=== PATIENT | female | born 1985 | race Caucasian/White ===

== ENCOUNTER 2018-07-18 11:12 | Emergency (ER) | payer OTHER ==
[2018-07-18 11:39] VITALS: BP 109/56
[2018-07-18] MEDS ORDERED: Ketorolac INJ* 30 MG/ML 1 ML VIAL IM ONE (11:54)
[2018-07-18] MEDS ORDERED: Ondansetron ODT TAB* 4 MG PO ONE (12:00)
--- NOTE | 2018-07-18 12:05 | UC ---
Shoulder Pain HPI - HPI Summary HPI Summary: 33-year-old female presents with 3 day history of right shoulder pain. States she has had some issues with shoulder pain for the past year following receiving a spider bite which required her to be hospitalized at [facility] 5 days. States the pain has progressively worsened over the last 3 days. Describes as sharp. Radiates up into the right side of her neck. States this morning she started developing some numbness and tingling in the right arm and fingers. No specific injury although she does report using the arm a lot performing repetitive motions at work the other day. Denies fever, chills, chest pain, shortness of breath, abdominal pain, nausea , or vomiting. - History of Current Complaint Chief Complaint: UCUpperExtremity Stated Complaint: RIGHT ARM CONCERN Time Seen by Provider: 07/18/18 11:21 Hx Obtained From: Patient Hx Last Menstrual Period: 06/19/18 Pain Intensity: 8 - Allergies/Home Medications Allergies/Adverse Reactions: Allergies Allergy/AdvReac Type Severity Reaction Status Date / Time Penicillins Allergy Shortness Verified 07/18/18 12:02 of Breath Home Medications: Home Medications Acetaminophen [Mapap] 6 tab PO PRN 07/18/18 [History] PMH/Surg Hx/FS Hx/Imm Hx Psychological History: Anxiety, Depression - Surgical History Surgical History: Yes Surgery Procedure, Year, and Place: , . TONSILLECTOMY - Family History Known Family History: Positive: Non-Contributory - Social History Occupation: Employed Full-time Lives: With Family Alcohol Use: None Substance Use Type: None Smoking Status (MU): Heavy Every Day Tobacco Smoker Type: Cigarettes Amount Used/How Often: 1 PPD Review of Systems All Other Systems Reviewed And Are Negative: Yes Constitutional: Negative: Fever, Chills Skin: Negative: Rash Respiratory: Negative: Shortness Of Breath, Cough Cardiovascular: Negative: Palpitations, Chest Pain Gastrointestinal: Negative: Vomiting, Nausea Genitourinary: Positive: Negative Musculoskeletal: Positive: Other: - See HPI Neurological: Positive: Paresthesia, Numbness Is Patient Immunocompromised?: No Physical Exam - Summary Physical Exam Summary: GENERAL APPEARANCE: Alert, obese, adult female who appears to be uncomfortable holding her right arm in a position of comfort. NECK: Neck supple, non-tender. CARDIAC: Normal S1 and S2. No S3, S4 or murmurs. Rhythm is regular. There is no peripheral edema, cyanosis or pallor. Extremities are warm and well perfused. Capillary refill is less than 2 seconds. Peripheral pulses intact. LUNGS: Clear to auscultation without rales, rhonchi, wheezing or diminished breath sounds. ABDOMEN: Positive bowel sounds. Soft, nondistended, nontender. No guarding or rebound. No masses or hepatosplenomegally. MUSKULOSKELETAL: Patient complaining of severe generalized pain to the right shoulder with light palpation. Full exam limited as patient will not allow for any ROM testing to be performed. BACK: Examination of the spine reveals normal gait and posture, no spinal deformity or tenderness, decreased range of motion or muscular spasm. NEUROLOGICAL: Strength and sensation symmetric and intact to upper extremities. SKIN: Skin normal color, texture and turgor with no lesions or eruptions. Triage Information Reviewed: Yes Vital Signs: Initial Vital Signs Temp 97.9 F 07/18/18 11:30 Pulse 74 07/18/18 11:30 Resp 18 07/18/18 11:30 BP 109/56 07/18/18 11:30 Pulse Ox 100 07/18/18 11:30 Vital Signs Reviewed: Yes Shoulder Course/Dx - Course Course Of Treatment: 33-year-old female presents with 3 day history of right shoulder pain. States she has had some issues with shoulder pain for the past year following receiving a spider bite which required her to be hospitalized at [facility] 5 days. States the pain has progressively worsened over the last 3 days. Describes as sharp. Radiates up into the right side of her neck. States this morning she started developing some numbness and tingling in the right arm and fingers. No specific injury although she does report using the arm a lot performing repetitive motions at work the other day. Denies fever, chills, chest pain, shortness of breath, abdominal pain, nausea , or vomiting. Afebrile. Vital signs stable. Exam of the shoulder was limited because patient complained of severe pain with light touch and would not allow for any range of motion to be performed. Preliminary reading of the X -ray of the shoulder by myself showed no acute pathology. A review of her chart shows she was seen at this facility on 12/04/2017 for similar symptoms involving her left shoulder. A CT of the cervical and thoracic spine were obtained at that time which showed some mild cervical spondylosis and multilevel mild thoracic degenerative spondylosis. Patient was given ketorolac 30 mg IM in the clinic for pain as well as a dose of ondansetron 4 mg by mouth as she states that the ketorolac has caused her to be nauseous in the past. I reviewed all these findings with the patient. She stated that she had some mild relief of the pain from the ketorolac. Will plan to treat her conservatively for acute shoulder pain with naproxen 500 mg twice a day for the next 5-7 days then as needed for pain. She was placed in an arm sling to provide some comfort for the next 2 days. I discussed with the patient the need to perform gentle range of motion exercises every 1-2 hours while awake while using the arm sling. These exercises were demonstrated for the patient. She is to follow-up with Dr. Merida in 5-7 days for further evaluation. Anticipatory guidance and warning symptoms were reviewed with the patient. Verbalizes understanding and agrees with plan of care. - Differential Dx/Diagnosis Differential Diagnosis/HQI/PQRI: Arthritis, Bursitis, Rotator Cuff Injury, Thoracic Outlet Syndrome Provider Diagnosis: Right shoulder pain Discharge - Sign-Out/Discharge Documenting (check all that apply): Patient Departure All imaging exams completed and their final reports reviewed: Yes - Discharge Plan Condition: Stable Disposition: HOME Prescriptions: Naproxen [Naproxen 500 mg tab] 500 mg PO Q12HR #30 tablet Patient Education Materials: Shoulder Pain (ED) Forms: *Work Release Referrals: Linda Larios NP [Primary Care Provider] - Enio Myrick MD [Medical Doctor] - 5 Days Additional Instructions: The x-ray of your right shoulder performed in the clinic today was normal. You were given an injection of anti-inflammatory pain medication called ketoralac (Toradol) in the clinic today at 12:00 pm. You should not take any other anti-inflammatory pain medications including ibuprofen (Advil, Motrin), naproxen (Aleve), or aspirin for at least 8 hours after receiving this medication. You have been given a prescription for naproxen 500 mg 1 tab with food every 12 hours for pain. You should start this tonight at 8:00 pm and take regularly for the next 5-7 days. You may then take every 12 hours as needed for pain. Use the arm sling that was provided for the next 2 days for support. You should remove your arm from the sling every 1-2 hours while awake and perform the range of motion exercises we discussed to avoid having the should freeze up. Do not use the sling for more than 2 days[address] Follow up with Dr. Myrick, orthopedic surgery, in 5-7 days for further evaluation and treatment. Seek immediate medical attention in the emergency room if you have severe pain that is not managed with pain medication, lose function of the arm, have chest pain, shortness of breath, or any worsening of symptoms. - Billing Disposition and Condition Condition: STABLE Disposition: Home
== END 2018-07-18 13:08 | disposition home or self-care (01) ==
LOC: MERGE 11:12 → UCCORT 11:12
DX: M25.511 Pain in right shoulder (principal); F41.9 Anxiety disorder, unspecified; F32.9 Major depressive disorder, single episode, unspecified; F17.210 Nicotine dependence, cigarettes, uncomplicated; Z88.0 Allergy status to penicillin
CPT/HCPCS: 96372; 99212; A9270-GY; G0463; J1885

== ENCOUNTER 2018-08-13 12:01 | Emergency (ER) | payer OTHER ==
--- OUTSIDE RECORDS SUMMARY | 2018-08-13 12:12 | XMS REPORT | Continuity of Care Document ---
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 Abel Larios NP Primary Care Physician Unavailable Payers Date Identification Numbers Payment Provider Subscriber Effective: 2007 Policy Number: [id number] [employer] Deborah Tsai PayID: [id number] [address] [place] [address] Expires: 2017 Policy Number: [id number] Medicaid Deborah Tsai Group Name: 1 1 [address] PayID: [id number] [place] [address] Advance Directives Description No Information Available Problems Active Problems Provider Date Deviated nasal septum Abel Larios FNP Onset: 04/30/2016 Note: Document: 04/17/16 - Consult ENT - Selma Foss Resolved Problems Sprain of knee and leg Oscar Hatfield MD Onset: 09/13/2011 Resolved: 07/07/2015 Sprain of cruciate ligament of knee Oscar Hatfield MD Onset: 09/27/2011 Resolved: 07/07/2015 Family History Date Family Member(s) Observation Comments Father Hepatitis C Father due to Throat Cancer () Mother Cervical Cancer Mother Depression Mother Anxiety Mother substance abuse Mother post traumatic stress disorder First Sister Thyroid Disease Grandfather Stroke Grandfather Anxiety Grandfather Hypertension Grandmother Cervical Cancer Grandmother Anxiety Paternal Grandfather Hypertension Paternal Grandfather due to NC () Paternal Grandmother Thyroid Disease Maternal Grandfather due to "unplugged himself" () Maternal Grandfather Stroke Maternal Grandfather Heart Attack Maternal Grandfather Hypertension Maternal Grandfather Kidney Disease was on dialysis Maternal Grandmother Stroke Maternal Grandmother Heart Attack Maternal Grandmother Heart Disease S/P 3 vessel CABG Social History Type Date Description Comments Sex Unknown Diet Patient follows no dietary restrictions Occupation [employer] Tobacco Use Start: Unknown Current Cigarette Smoker 1 Pack Daily Cigarette Use Pack Years - 14 ETOH Use Occasionally consumes alcohol Tobacco Use Start: Unknown Heavy tobacco smoker (more than 10 cigarettes/day) Smoking Status Reviewed: 07/22/18 Heavy tobacco smoker (more than 10 cigarettes/day) Allergies, Adverse Reactions, Alerts Active Allergies Reaction Severity Comments Date Penicillin 09/13/2011 Medications Active Medications SIG Qnty Indications Ordering Provider Date Prenata 1 by mouth every 90units Z33.1 Hortencia Shultz, 07/22/2018 29-1mg Chewtabs day Sertraline HCL take one tablet [facility] History Medications Flagyl one by mouth 14tabs [place], 11/26/2017 - 500[facility] twice a [facility] x [facility] 07/22/2018 Tablets days Quetiapine take 1 tablet by 60tabs G47.9 [place], 11/14/2017 - Fumarate mouth 1 [facility] 07/22/2018 25mg prior to sleep,if Tablets no improvement in 3 days,may try 2 tablets as needed up to 4 tablets at night Prednisone 2 by mouth every 10tabs M75.21 [place], 09/13/2017 - 20mg day x 5 days Abel [facility] 09/18/2017 Tablets Fluconazole one by mouth 1tabs B37.3 [place], 09/13/2017 - 150mg [facility] 11/14/2017 Tablets Norgestimate-Eth 1 by mouth every 28tabs Z30.09 [place], 09/13/2017 - Estradiol day for [address] [facility] 07/22/2018 then off 1 week 0.25-35mg-mcg Tablets Cefdinir 1 by mouth twice 20caps J01.90 Gemini Cruz, 04/15/2017 - 300mg a day PNP-BC, [employer], Ibclc 09/13/2017 Capsules Ondansetron HCL one every 8 hours 12tabs K29.00 [place], 02/21/2017 - as needed for Abel [facility] 07/22/2018 8mg Tablets nausea Naproxen take one tablet 60tabs M75.20 [place], 10/03/2016 - 500mg by mouth twice a Abel [facility] 09/13/2017 Tablets day Tylenol Extra 1-2 tabs by mouth 180tabs M54.12 [place], 09/28/2016 - Strength every 6 hours as Abel [facility] 07/22/2018 500mg needed Tablets Prednisone 1 tab PO bid x 5 10tabs M54.12 [facility] 09/28/2016 - 20mg days Abel [facility] 10/03/2016 Tablets No Active Unknown 09/28/2016 - Medications 09/28/2016 Flagyl one by mouth 14tabs A59.01 [place], 09/24/2016 - 500mg twice a day x 7 Abel [facility] 09/28/2016 Tablets days Flagyl one by mouth 14tabs [place], 09/17/2016 - 500mg twice a day x 7 [facility] 09/24/2016 Tablets days No Active Unknown 09/14/2016 - Medications 09/17/2016 Fluticasone 1 spray each 16units [place], 04/05/2016 - Propionate nostril twice a Abel [facility] 09/14/2016 day 50mcg/Act Suspension Azithromycin 2 by mouth on day 6tabs [place], 04/05/2016 - 1 then 1 by mouth Abel [facility] 04/11/2016 250mg Tablets every day on days 2-5 Zithromax take 2 tabs by 6tabs J01.00 [place], 02/08/2016 - 250mg mouth on day 1 Abel [employer] 02/14/2016 Tablets then 1 tab by mouth qddays 2-5 Sertraline HCL Take One Tablet 30tabs F41.9 [place], 02/08/2016 - By Mouth Every Abel [employer] 09/14/2016 100mg Tablets Day Sertraline HCL 50 mg by mouth 45tabs F41.9 [place], 07/07/2015 - every day MARLENE Roman 02/08/2016 50mg Tablets Venlafaxine HCL ER 1 by mouth every 30caps F41.9 Jenelle Grady, 10/13 - day M.D. 07/07/2015 150mg Caps ER 24HR Escitalopram 1 by mouth every 30tabs 300.02 Jenelle Grady, 2014 - Oxalate day M.D. 10/13/2014 20mg Tablets Ibuprofen Unknown - 800mg 10/13/2014 Tablets Tramadol HCL Unknown - 50mg 10/13/2014 Tablets Immunizations CPT Code Status Date Vaccine Lot # [id number] Given 12/05/2016 MMR Vaccine, Live, For Subcutaneous Use [id number] Given 10/03/2016 Tdap injection [id number] Vital Signs Date Vital Result Comment 07/22/2018 1:16pm BP Systolic 118 mmHg BP Diastolic 62 mmHg Body Temperature 97.3 F Heart Rate 95 /min Weight 236.00 lb O2 % BldC Oximetry 97 % 11/14/2017 10:39am BP Systolic Sitting Left Arm 118 mmHg BP Diastolic Sitting Left Arm 76 mmHg Heart Rate 80 /min Respiratory Rate 18 /min Height 65 inches 5'5" Weight 219.38 lb BMI (Body Mass Index) 36.5 kg/m2 BSA (Body Surface Area) 2.06 m2 [place] body weight in kilograms 57 kg Last Menstrual Period [id number] 09/13/2017 2:07pm BP Systolic Sitting Left Arm 128 mmHg BP Diastolic Sitting Left Arm 86 mmHg Body Temperature 98.8 F Heart Rate 80 /min Respiratory Rate 18 /min Height 65 inches 5'5" Weight 216.25 lb BMI (Body Mass Index) 36.0 kg/m2 BSA (Body Surface Area) 2.04 m2 [place] body weight in kilograms 57 kg Last Menstrual Period [id number] 04/15/2017 2:26pm BP Systolic Sitting Left Arm 110 mmHg BP Diastolic Sitting Left Arm 68 mmHg Body Temperature 98.2 F Heart Rate 60 /min Weight 217.00 lb O2 % BldC Oximetry 96 % 02/21/2017 11:20am BP Systolic Sitting Left Arm 118 mmHg BP Diastolic Sitting Left Arm 74 mmHg Body Temperature 98.7 F Heart Rate 82 /min Respiratory Rate 20 /min Height 65 inches 5'5" Weight 209.00 lb BMI (Body Mass Index) 34.8 kg/m2 BSA (Body Surface Area) 2.02 m2 [place] body weight in kilograms 57 kg Last Menstrual Period [id number] Pain Level 5 lower abdomin 10/03/2016 3:00pm BP Systolic 126 mmHg BP Diastolic 82 mmHg Height 65 inches 5'5" Weight 212.00 lb BMI (Body Mass Index) 35.3 kg/m2 BSA (Body Surface Area) 2.03 m2 [place] body weight in kilograms 57 kg 09/28/2016 1:01pm BP Systolic 125 mmHg BP Diastolic 68 mmHg Height 65 inches 5'5" Weight 213.00 lb BMI (Body Mass Index) 35.4 kg/m2 BSA (Body Surface Area) 2.03 m2 [place] body weight in kilograms 57 kg 09/14/2016 2:16pm BP Systolic Sitting Left Arm 112 mmHg BP Diastolic Sitting Left Arm 64 mmHg Heart Rate 82 /min Respiratory Rate 18 /min Height 65 inches 5'5" Weight 214.00 lb BMI (Body Mass Index) 35.6 kg/m2 BSA (Body Surface Area) 2.04 m2 [place] body weight in kilograms 57 kg Last Menstrual Period [id number] 02/08/2016 10:35am BP Systolic Sitting Left Arm 1128 mmHg BP Diastolic Sitting Left Arm 72 mmHg Body Temperature 97.8 F Height 65 inches 5'5" Weight 202.00 lb BMI (Body Mass Index) 33.6 kg/m2 BSA (Body Surface Area) 1.99 m2 [place] body weight in kilograms 57 kg Last Menstrual Period [id number] 07/07/2015 2:03pm BP Systolic Sitting Left Arm 118 mmHg BP Diastolic Sitting Left Arm 72 mmHg Height 65 inches 5'5" Weight 200.00 lb BMI (Body Mass Index) 33.3 kg/m2 BSA (Body Surface Area) 1.98 m2 Last Menstrual Period [id number] 10/13/2014 3:37pm BP Systolic Sitting Left Arm 108 mmHg BP Diastolic Sitting Left Arm 62 mmHg Heart Rate 74 /min Respiratory Rate 19 /min Height 65 inches 5'5" Weight 184.00 lb BMI (Body Mass Index) 30.6 kg/m2 BSA (Body Surface Area) 1.91 m2 Last Menstrual Period [id number] Only One Day 05/31/2014 4:16pm BP Systolic 138 mmHg BP Diastolic 72 mmHg Heart Rate 66 /min Respiratory Rate 19 /min Height 65 inches 5'5" Weight 208.00 lb 09/13/2011 8:52am BP Systolic Sitting Right Arm 116 mmHg BP Diastolic Sitting Right Arm 78 mmHg Height 65.5 inches 5'5.50" Weight 231.00 lb BMI (Body Mass Index) 37.9 kg/m2 09/11/2011 3:01pm BP Systolic 118 mmHg BP Diastolic 58 mmHg Heart Rate 72 /min Weight 225.00 lb 06/12/2011 11:25am BP Systolic 118 mmHg BP Diastolic 72 mmHg Height 65 inches 5'5" Weight 232.00 lb Results Test Date Facility Test Result H/L Range Note Urine HCG (Qualitative) 07/22/2018 [facility] Misc Positive Urine Dipstick 07/22/2018 [facility] Ua Color yellow Yellow Ua Clarity clear Clear Ua Leuko negative Negative Ua Nitrite negative Negative Ua Urobilinogen 0.2 0.2 - 1.0 E.U./dL Ua Protein 0.15 g/L High Negative Ua PH 6.0 Low 6.5-7.5 Ua Blood negtive Negative Ua Specific Goode 1.025 1.010-1.030 Ua Ketones negative Negative Ua Bilirubin negative Negative Ua Glucose negative Negative Chlmaydia/GC/Trichomonas 11/14/[address] Trichomonas Negative Negative [address] [place] [address] PCR [phone] Chlamydia trachomatis, PCR Negative Negative Neisseria gonorrhoeae, PCR Negative Negative 2 [facility] [facility] Trichomonas Negative [Negative] Vaginitis [address] vaginalis Panel [place], [place] [id number] [phone] Gardnerella vaginalis POSITIVE High [Negative] Chely species Negative [Negative] 3 Urine Dipstick 11/14/2017 [facility] Ua Leuko - Negative Ua Nitrite - Negative Ua Urobilinogen 0.2 0.2 - 1.0 E.U./dL Ua Protein TRACE Negative Ua PH 5 Low 6.5-7.5 Ua Blood - Negative Ua Specific Goode 1.030 1.010-1.030 Ua Ketones - Negative Ua Bilirubin - Negative Ua Glucose - Negative CBS W/Automated Diff 08/30/2017 [facility] White Blood 5.7 K/uL N 3.1-10.[address] [place] [address] [phone] Red Blood Count 4.30 M/uL N 3.90-5.40 Hemoglobin 12.9 gm/dL N 11.6-15.8 Hematocrit 39.1 % N 36.0-46.1 Mean Cell Volume 90.9 fl N 80.9-99.0 Mean Corpuscular HGB 30.0 pg N 25.9-32.7 Mean Corpuscular HGB Conc 33.0 g/dL N 30.8-34.3 Platelet Count 294 K/uL N 155-360 Red Cell Distri Width SD 45.2 fl N 3-47 Red Cell Distri Width %CV 13.9 % N 11.7-14.4 Mean Platelet Volume 9.8 fL N 8.9-12.4 Neut% 39.0 % Low 40.4-72.8 Lymph % 44.7 % High 20.0-42.0 [place] % 8.6 % N 4.3-13.2 Eo% 7.2 % High 0.0-6.6 Bas% 0.5 % N 0.0-1.1 Neut# 2.24 K/uL N 1.8-7.0 Lymph # 2.56 K/uL N 1.0-4.0 [place] # 0.49 K/uL N 0.3-0.9 Eos # 0.41 K/uL N 0.0-0.5 Baso # 0.03 K/uL N 0.0-0.1 Comprehensive Metabolic 08/30/2017 [facility] Glucose 88 mg/dL N 74-[address] [place] [address] [phone] BUN 9 mg/dL N 7-18 Creatinine 0.8 mg/dL N 0.6-1.3 Glom Filtration Rate, Estimate >60 mL/min >60 If >60 mL/min >60 5 BUN/Creat 11.2 ratio Sodium 144 mmol/L N 136-145 Potassium 3.8 mmol/L N 3.5-5.1 Chloride 114 mmol/L High 98-107 Carbon Dioxide 21 mmol/L N 21-32 Anion Gap 9 mEq/L N 8-16 Calcium 7.8 mg/dL Low 8.5-10.1 Total Protein 5.9 g/dL Low 6.4-8.2 Albumin 2.8 g/dL Low 3.4-5.0 Globulin 3.1 g/dL N 1.9-4.3 Alb/Glob 0.9 ratio Bilirubin,Total < 0.1 mg/dL Low 0.2-1.0 Sgot/Ast 13 U/L Low 15-37 6 SGPT/Alt 19 U/L N 12-78 Alkaline Phosphatase 73 U/L N 45-117 CBS W/Automated Diff 08/29/2017 [facility] White Blood 6.0 K/uL N 3.1-10.[address] [place] [address] [phone] Red Blood Count 4.36 M/uL N 3.90-5.40 Hemoglobin 13.0 gm/dL N 11.6-15.8 Hematocrit 39.4 % N 36.0-46.1 Mean Cell Volume 90.4 fl N 80.9-99.0 Mean Corpuscular HGB 29.8 pg N 25.9-32.7 Mean Corpuscular HGB Conc 33.0 g/dL N 30.8-34.3 Platelet Count 295 K/uL N 155-360 Red Cell Distri Width SD 45.1 fl N 3-47 Red Cell Distri Width %CV 14.0 % N 11.7-14.4 Mean Platelet Volume 9.7 fL N 8.9-12.4 Neut% 46.4 % N 40.4-72.8 Lymph % 39.1 % N 20.0-42.0 Shelby % 8.4 % N 4.3-13.2 Eo% 5.6 % N 0.0-6.6 Bas% 0.5 % N 0.0-1.1 Neut# 2.80 K/uL N 1.8-7.0 Lymph # 2.36 K/uL N 1.0-4.0 [place] # 0.51 K/uL N 0.3-0.9 Eos # 0.34 K/uL N 0.0-0.5 Baso # 0.03 K/uL N 0.0-0.1 Laboratory test 08/29/2017 [facility] Sedimentation 8 mm/hr N 0-20 [address] [place] [address] [phone] Comprehensive 08/29/2017 [facility] Glucose 88 mg/dL N 74-106 Metabolic Panel [address] [place] [address] [phone] BUN 9 mg/dL N 7-18 Creatinine 0.7 mg/dL N 0.6-1.3 Glom Filtration Rate, Estimate >60 mL/min >60 If >60 mL/min >60 8 BUN/Creat 12.8 ratio Sodium 144 mmol/L N 136-145 Potassium 4.0 mmol/L 3.5-5.1 Chloride 114 mmol/L High 98-107 Carbon Dioxide 22 mmol/L N 21-32 Anion Gap 8 mEq/L N 8-16 Calcium 8.0 mg/dL Low 8.5-10.1 Total Protein 6.2 g/dL Low 6.4-8.2 Albumin 3.0 g/dL Low 3.4-5.0 Globulin 3.2 g/dL N 1.9-4.3 Alb/Glob 0.9 ratio Bilirubin,Total 0.2 mg/dL N 0.2-1.0 Sgot/Ast 13 U/L Low 15-37 9 SGPT/Alt 17 U/L N 12-78 Alkaline Phosphatase 70 U/L N 45-117 Laboratory test 08/29/2017 [facility] C-Reactive 28.1 mg/L High <3.0 finding [address] [facility] Protein,[place] [address] [phone] Drugs Of 08/28/2017 [facility] Amphetamines Negative Abuse-Urine 134 [facility] (Urine) Screen 7 [place] [address] [phone] Barbiturates (Urine) Negative Benzodiazepines (Urine) Negative Cannabinoids (Urine) Negative Cocaine Metabolite (Urine) Negative Methadone (Urine) Negative Opiates (Urine) Negative Urine Cutoffs * 10 Ua RFX Micro & Culture 08/28/2017 [facility] Urine Color YELLOW Yellow II [address] [place] [address] [phone] Urine Clarity CLEAR Clear Urine Glucose - Dipstick NEGATIVE mg/dL Negative Urine Bilirubin - Dipstick NEGATIVE Negative Urine Ketone NEGATIVE mg/dL Negative Urine Specific Goode <=1.005 Low 1.010-1.030 Urine Blood LARGE Abnormal Negative Urine PH 6.5 N 6.5-7.5 Urine Protein - Dipstick NEGATIVE mg/dL Negative Urine Urobilinogen - Dipstick 0.2 E.U./dL N 0.2-1.0 Urine Nitrite - Dipstick NEGATIVE Negative Urine Leuk Esterase NEGATIVE Negative Urine RBC 5-10 rbc/hpf High 0-2 Urine WBC NONE SEEN wbc/hpf 0-7 Urine Epithelial Cells VERY FEW /lpf None Seen Source: URINE, CLEAN CAT <SEE NOTE> 11 Blood Culture 08/28/2017 [facility] Blood Culture NO GROWTH: FINAL [address] Aerobic <SEE NOTE> [place] [id number] [phone] Blood Culture Anaerobic NO GROWTH: FINAL <SEE NOTE> 13 CBS W/Automated 08/28/2017 [facility] White Blood 9.7 K/uL N 3.1-10.7 [address] [place] [address] [phone] Red Blood Count 4.20 M/uL N 3.90-5.40 Hemoglobin 12.8 gm/dL N 11.6-15.8 Hematocrit 37.9 % N 36.0-46.1 Mean Cell Volume 90.2 fl N 80.9-99.0 Mean Corpuscular HGB 30.5 pg N 25.9-32.7 Mean Corpuscular HGB Conc 33.8 g/dL N 30.8-34.3 Platelet Count 340 K/uL N 155-360 Red Cell Distri Width SD 44.2 fl N 3-47 Red Cell Distri Width %CV 13.9 % N 11.7-14.4 Mean Platelet Volume 9.5 fL N 8.9-12.4 Neut% 62.3 % N 40.4-72.8 Lymph % 26.7 % N 20.0-42.0 Shelby % 7.3 % N 4.3-13.2 Eo% 3.4 % N 0.0-6.6 Bas% 0.3 % N 0.0-1.1 Neut# 6.03 K/uL N 1.8-7.0 Lymph # 2.59 K/uL N 1.0-4.0 Shelby # 0.71 K/uL N 0.3-0.9 Eos # 0.33 K/uL N 0.0-0.5 Baso # 0.03 K/uL N 0.0-0.1 Comprehensive Metabolic 08/28/2017 [facility] Glucose 79 mg/dL N 74-106 Panel [address] [place], [place] [id number] [phone] BUN 11 mg/dL N 7-18 Creatinine 1.0 mg/dL N 0.6-1.3 Glom Filtration Rate, Estimate >60 mL/min >60 If >60 mL/min >60 15 BUN/Creat 11.0 ratio Sodium 142 mmol/L N 136-145 Potassium 3.1 mmol/L Low 3.5-5.1 Chloride 110 mmol/L High 98-107 Carbon Dioxide 24 mmol/L N 21-32 Anion Gap 8 mEq/L N 8-16 Calcium 8.4 mg/dL Low 8.5-10.1 Total Protein 7.1 g/dL N 6.4-8.2 Albumin 3.7 g/dL N 3.4-5.0 Globulin 3.4 g/dL N 1.9-4.3 Alb/Glob 1.1 ratio Bilirubin,Total 0.2 mg/dL N 0.2-1.0 Sgot/Ast 12 U/L Low 15-37 16 SGPT/Alt 21 U/L N 12-78 Alkaline Phosphatase 80 U/L N 45-117 Lactic Acid 08/28/2017 [facility] Lactic Acid 0.5 mmol/L N 0.4-1.9 [address] [place], [place] [id number] [phone] Lab Reflex >2.0 for Sepsis? Y Blood Culture 08/28/2017 [facility] Blood Culture NO GROWTH: FINAL [address] Aerobic <SEE NOTE> [place], [place] [address] [phone] Blood Culture Anaerobic NO GROWTH: FINAL <SEE NOTE> 18 Urine Culture 02/21/2017 [facility] [employer] Urine Culture URETHRAL KHANH [address] [place], [place] [address] [phone] Quantity 10,000 - 50,000 <SEE NOTE> 20 HCV Rna [facility]/14[facility] [facility] Hepatitis C Negative Negative 21, 22 [facility] Qual [address] [place] [address] [phone] HIV Screen 09/14/[address] [facility] HIV Screen 4th Non Reactive Non Reactive 23 4TH Gen [address] [facility] [place] [address] wRfx [phone] Chlamydia/ 09/14/[address] Chlamydia Negative Negative GC Ragini [address] [place] [address] Trachomatis, [place] [address] Ragini [phone] Neisseria Gonorrhoeae, Ragini Negative Negative Please note: (SEE NOTE) 24 Affirm 09/14/[address] Trichomonas POSITIVE Abnormal [ Negative] Vaginitis [address] [place] [address] [place] [address] [phone] Gardnerella vaginalis Negative [Negative] Chely species Negative [Negative] 25 Laboratory test 09/14/[address] Thyroid Stim 1.98 uIU/mL N 0.30-4.[address] [place] [address] Hormone [place], [place] [address] [phone] Comprehensive 09/14/[address] Glucose 76 mg/dL N 74-106 Metabolic Panel [address] [place] [address] [phone] BUN 7 mg/dL N 7-18 Creatinine 0.8 mg/dL N 0.6-1.3 Glom Filtration Rate, Estimate >60 mL/min >60 If >60 mL/min >60 26 BUN/Creat 8.7 ratio Sodium 141 mmol/L N 136-145 Potassium 3.4 mmol/L Low 3.5-5.1 Chloride 105 mmol/L N 98-107 Carbon Dioxide 30 mmol/L N 21-32 Anion Gap 6 mEq/L Low 8-16 Calcium 8.8 mg/dL N 8.5-10.1 Total Protein 7.2 g/dL N 6.4-8.2 Albumin 3.9 g/dL N 3.4-5.0 Globulin 3.3 g/dL N 1.9-4.3 Alb/Glob 1.2 ratio Bilirubin,Total 0.3 mg/dL N 0.2-1.0 Sgot/Ast 17 U/L N 15-37 SGPT/Alt 27 U/L N 12-78 Alkaline Phosphatase 69 U/L N 45-117 Laboratory test finding 05/31/2014 N2N/CCD Import Antibody Detection See Note 27 Hepatitis C Antibody Nonreactive Nonreactive Rapid Plasma Reagin Nonreactive Nonreactive 28 Signal/Cutoff ratio < 0.02 <0.80 29 GC/CT 05/31/2014 N2N/CCD Import Chlamydia Negative 30 GC Negative Laboratory test finding 05/31/2014 N2N/CCD Import [facility] HR- LR- 31 1 Z01.419 2 A negative result for either C. trachomatis and/or N. gonorrhoeae does not preclued an infection because results are dependent on adequate specimen collection, absence of inhibitors, and sufficient DNA to be detected. 3 Method: BD Affirm VPIII DNA Probe Assay 4 CELLULITIS 5 Note: Persistent reduction for 3 months or more in an eGFR <60 mL/min/1.73 m2 defines CKD. Patients with eGFR values >/=60 mL/min/1.73 m2 may also have CKD if evidence of persistent proteinuria is present. The original MDRD equation for estimated GFR is not valid for patients less than 18 years of age. Additional information may be found at www.kdoqi.org. 6 Values below the stated reference ranges of AST and ALT can be seen in normal populations. Clinical correlation is suggested. 7 Method: Sediplast Modified Westergren 8 Note: Persistent reduction for 3 months or more in an eGFR <60 mL/min/1.73 m2 defines CKD. Patients with eGFR values >/=60 mL/min/1.73 m2 may also have CKD if evidence of persistent proteinuria is present. The original MDRD equation for estimated GFR is not valid for patients less than 18 years of age. Additional information may be found at www.kdoqi.org. 9 Values below the stated reference ranges of AST and ALT can be seen in normal populations. Clinical correlation is suggested. 10 URINE SPECIMENS ARE SCREENED AT THE LISTED CUTOFFS DRUG CLASS INITIAL TEST LEVEL Amphetamines 1000 ng/mL Barbiturates 200 ng/mL Benzodiazepines 200 ng/mL Cannabinoids 50 ng/mL Cocaine Metabolite 300 ng/mL Methadone 300 ng/mL Opiates 300 ng/mL Any PRESUMPTIVE POSITIVE findings are UNCONFIRMED. Confirmatory testing is suggested if findings are unexpected. Please contact laboratory if confirmatory testing is desired. SPECIMENS ARE HELD FOR 72 HOURS. 11 URINE, CLEAN CATCH 12 NO GROWTH: FINAL REPORT 13 NO GROWTH: FINAL REPORT 14 R SHOULDER SPIDER BITE, RED, SWELLING, INFECTION? 15 Note: Persistent reduction for 3 months or more in an eGFR <60 mL/min/1.73 m2 defines CKD. Patients with eGFR values >/=60 mL/min/1.73 m2 may also have CKD if evidence of persistent proteinuria is present. The original MDRD equation for estimated GFR is not valid for patients less than 18 years of age. Additional information may be found at www.kdoqi.org. 16 Values below the stated reference ranges of AST and ALT can be seen in normal populations. Clinical correlation is suggested. 17 NO GROWTH: FINAL REPORT 18 NO GROWTH: FINAL REPORT 19 K29.00 20 10,000 - 50,000 CFU/mL 21 Z01.411 Z13.29 Z11.3 Z20.5 22 Negative: HCV RNA Not Detected Performed at: - [facility] [id number] [employer] Operator: Luis Eduardo Lo MD, Phone: [phone] Performed at: - [facility] [id number] [employer] Operator: Mela Scott MD, Phone: [phone] 24 A negative result for either C. trachomatis and/or N. gonorrhoeae does not preclued an infection because results are dependent on adequate specimen collection, absence of inhibitors, and sufficient DNA to be detected. A negative result for either C. trachomatis and/or N. gonorrhoeae does not preclued an infection because results are dependent on adequate specimen collection, absence of inhibitors, and sufficient DNA to be detected. 25 Method: BD Affirm VPIII DNA Probe Assay 26 Note: Persistent reduction for 3 months or more in an eGFR <60 mL/min/1.73 m2 defines CKD. Patients with eGFR values >/=60 mL/min/1.73 m2 may also have CKD if evidence of persistent proteinuria is present. The original MDRD equation for estimated GFR is not valid for patients less than 18 years of age. Additional information may be found at www.kdoqi.org. 27 No reportable results 28 PENDING; TEST PERFORMED ON MONDAYS AND THURSDAYS 29 Antibodies to HCV not detected; does not exclude early acute HCV infection. 30 [facility] [address] [place] [address], [address] [place] [address] STI REPORT Name: Deborah Tsai : 1985 (Age: 29) Sex: F Location: [facility] Requisition #: [id number] Date Collected: 05/31/2014 Billing #: [id number] Date Received: 06/01/2014 Physician(s): JENELLE GRADY MD Specimen(s) Received: ThinPrep, APTIMA Date Ordered: 06/01/2014 Status: Signed Out Date Reported: 06/02/2014 Chlamydia trachomatis NEGATIVE Electronic Signature Bridget Landon PA [employer] Date Ordered: 2014 Status: Signed Out Date Reported: 06/02/2014 Neisseria gonorrhoeae NEGATIVE Electronic Signature Bridget Landon PA [employer] ICD-9 Codes: V72.31 31 Interpretation: NEGATIVE FOR INTRAEPITHELIAL LESION OR MALIGNANCY. SHIFT IN KHANH SUGGESTIVE OF BACTERIAL VAGINOSIS. Specimen Adequacy: SATISFACTORY FOR EVALUATION. Additional Findings: ENDOCERVICAL/TRANSFORMATION ZONE PRESENT. Cytology Laboratory [address] [place] [address], [address] [place] [address] Fax CYTOLOGY REPORT Name: Deborah Tsai : 1985 (Age: 29) Sex: F Location: [facility] Med. Rec. # [id number] Date Collected: 05/31/2014 Billing #: [id number] Date Received: 06/01/2014 Requisition # [id number] Physician(s): JENELLE GRADY MD Source of Specimen: ENDOCERVICAL/ECTOCERVICAL THIN PREP Clinical Information: Date of Last Menstrual Period: 04/22/14 br Electronic Signature ESAU Verma (ASCP) Reported: 06/04/2014 [employer] HPV High Risk Date Ordered: 06/02/2014 Status: Signed Out Date Reported: 06/03/2014 High Risk NEGATIVE (HPV Types 16, 18, 31, 33, 35, 39, 45, 51, 52, 56, 58, 59, 66, 68) APTIMA Electronic Signature Bridget Landon PA [employer] HPV Low Risk Date Ordered: 06/02/2014 Status: Signed Out Date Reported: 06/07/2014 Low Risk NEGATIVE (HPV types 6, 11) In situ hybridization The in situ hybridization report includes results which use analyte-specific reagents. These tests were developed and their performance characteristics determined by [employer] They have not been cleared or approved by the U.S. Food and Drug Administration. The F.D.A. has determined that such clearance or approval is not necessary. The controls have been reviewed by the pathologist and are satisfactory. Electronic Signature Jose Munoz MD [facility] ICD-9 Code(s) V72.31 A; 616.10 Procedures Description No Information Available Encounters Type Date Location Provider Dx Diagnosis Office Visit 11/14/2017 Family Curly Larios, Z01.419 Encntr for ice guard inspector 10:45a [address] Carleyfer[place]ata, exam (general) PALM GATHERER (routine) w/o abn findings G47.9 Sleep disorder, unspecified Office Visit 09/13/2017 Family Larios, L03.113 Cellulitis of 2:00p Medicine MARLENE Rutledge right upper RD limb M75.21 Bicipital tendinitis, right shoulder Z30.09 Encounter for oth general coun and advice on contraception B37.3 Candidiasis of vulva and vagina Office Visit 04/15/2017 2:30p [facility] Medicine Gemini Cruz, J01.90 Acute sinusitis, West RD PNP-BC, PALM GATHERER, unspecified Ibclc Office Visit 02/21/2017 11:00a [facility] Medicine Ric, K29.[address] Carleyferleidenys, without bleeding PALM GATHERER Office Visit 10/03/2016 2:45p [facility] Ric, M75.[address] Carleyferleidenys, tendinitis, PALM GATHERER unspecified shoulder S01.112A Laceration w/o fb of left eyelid and periocular area, init Z23 Encounter for immunization Office 09/28/2016 Family Larios, M54.12 Radiculopathy, Visit 1:00p Medicine MARLENE Rutledge cervical region RD Office 09/14/2016 Family Larios, Z01.411 Encntr for ice guard inspector exam Visit 2:00p Medicine SANDRA RutledgeP (general) (routine) RD w abnormal findings N76.0 Acute vaginitis Z13.29 Encounter for screening for oth suspected endocrine disorder R20.0 Anesthesia of skin Office Visit 02/08/2016 Family Larios, J01.00 Acute maxillary 10:30a Medicine West Abel, PALM GATHERER sinusitis, RD unspecified F41.9 Anxiety disorder, unspecified Office Visit 07/07/2015 2:00p [facility] Medicine Nuvia Chiang, F41.9 Anxiety disorder, West RENNY Sorto unspecified Office Visit 10/13/2014 3:10p [facility] Medicine Oma, 300.[address] Morro Almanzar M.D. Office Visit 09/27/2011 1:20p Orthopaedic Office Pebbles [place]4.2 Sprains & Strains Oscar Mccain MD Knee Cruciate Ligament Office Visit 09/18/2011 10:20a Orthopaedic Office Michael [place].9 Sprains & Strains Oscar Mccain MD Knee & Leg Unspec Office Visit 09/13/2011 8:30a Orthopaedic Office Michael [place].9 Sprains & Strains Oscar Mccain MD Knee & Leg Unspec E005.3 Activities Involving Trampoline Plan of Treatment 07/22/2018 - Brandie Gramajo PAZ11.3 Encounter for screening for infections with a yrfcdlketfdxwU44.1 state, incidentalNew Medication:Prenata 29-1 mg - 1 by mouth every dayNew Xrays:Ultrasound, OB Transvaginal, Ordered: Comments:Will check labs and sonogram to determine dates. Start vitamins. Discussed smoking cessation as well. Will touch base with patient pending lab results.
--- OUTSIDE RECORDS SUMMARY | 2018-08-13 12:12 | XMS REPORT | Continuity of Care Document ---
:1985 External Reference #:[id number] Author Name CharlieAlejo Care Team Providers Name Role Phone Abel Larios FNP Primary Care Physician Unavailable Payers Date Identification Numbers Payment Provider Subscriber Policy Number: [id number] Rodrick Tsai PayID: [id number] [address] [place] [address] Advance Directives Description No Information Available Problems Description No Information Family History Date Family Member(s) Observation Comments General Diabetes General IN Social History Type Date Description Comments Sex Unknown Marital Status Lives With Occupation Currently Working ETOH Use Denies alcohol use Recreational Drug Use Denies Drug Use Tobacco Use Start: Unknown Heavy tobacco smoker (more than 10 cigarettes/day) Exercise Type/Frequency Exercises regularly Allergies, Adverse Reactions, Alerts Active Allergies Reaction Severity Comments Date Penicillin 07/21/2018 Medications Description No Active Medications Medications Administered in Office Medication SIG Qnty Indications Ordering Provider Date Celestone 3 mg and 3mg Enio Myrick MD 07/21/2018 Injection Immunizations Description No Information Available Vital Signs Date Vital Result Comment 07/21/2018 10:25am Height 65 inches 5'5" Weight 233.00 lb BP Systolic Sitting 110 mmHg BP Diastolic Sitting 64 mmHg Respiratory Rate 17 /min Pain Level 4 BMI (Body Mass Index) 38.8 kg/m2 Results Description No Information Available Procedures Date Code Description Status 07/21/2018 72224 Inject/Drain Joint/Bursa Major W/O US Completed Encounters Description No Information Available Plan of Treatment 07/21/2018 - Enio Myrick, MDM75.41 Impingement syndrome of right shoulderComments:home exercises sheetsFollow up:Follow up: As needed
[2018-08-13 12:41] VITALS: BP 107/59
--- NOTE | 2018-08-13 13:06 | UC ---
General HPI - HPI Summary HPI Summary: PER TRIAGE, Sinus pressure and congestion x2 weeks. Occasional productive cough. Coughing fits trigger gagging. Short of breath with exertion. Fever up to 102F. + wheezing. no CP. no hx asthma. + hx bronchitis and this feels the same. is 3 months , no calf pains or leg swelling. - History of Current Complaint Chief Complaint: UCGeneralIllness Stated Complaint: SINUS,CHEST CONGESTION Time Seen by Provider: 08/13/18 12:58 Hx Obtained From: Patient Hx Last Menstrual Period: 06/19/18 Onset/Duration: Gradual Onset Timing: Constant Pain Intensity: 0 Associated Signs & Symptoms: Negative: Chest Pain - Allergy/Home Medications Allergies/Adverse Reactions: Allergies Allergy/AdvReac Type Severity Reaction Status Date / Time Penicillins Allergy Shortness Verified 08/13/18 12:37 of Breath Home Medications: Home Medications Acetaminophen TAB* [Tylenol TAB*] 650 mg PO Q4H PRN 08/13/18 [History Confirmed 08/13/18] Mv-Mn/Iron/FA/Herbal/Digestive [ One Tablet] 1 each PO DAILY 08/13/18 [ History Confirmed 08/13/18] PMH/Surg Hx/FS Hx/Imm Hx - Additional Past Medical History Additional PMH: 3 months Respiratory History: Bronchitis - Surgical History Surgical History: Yes Surgery Procedure, Year, and Place: , . TONSILLECTOMY - Family History Known Family History: Positive: Non-Contributory - Social History Alcohol Use: None Substance Use Type: None Smoking Status (MU): Heavy Every Day Tobacco Smoker Type: Cigarettes Amount Used/How Often: 1 PPD Review of Systems All Other Systems Reviewed And Are Negative: Yes ENT: Positive: Nasal Discharge, Sinus Congestion. Negative: Sore Throat, Ear Ache Respiratory: Positive: Shortness Of Breath, Cough Cardiovascular: Negative: Palpitations, Chest Pain Musculoskeletal: Negative: Calf Tenderness, Edema Physical Exam Triage Information Reviewed: Yes Appearance: Well-Appearing Vital Signs: Initial Vital Signs Temp 98.2 F 08/13/18 12:38 Pulse 78 08/13/18 12:38 Resp 18 08/13/18 12:38 BP 107/59 08/13/18 12:38 Pulse Ox 100 08/13/18 12:38 Vital Signs Reviewed: Yes Eyes: Positive: Conjunctiva Clear ENT: Positive: Pharynx normal, Nasal congestion, TMs normal, Sinus tenderness - maxillary. Negative: Nasal drainage Neck: Positive: Supple, Nontender, No Lymphadenopathy Respiratory: Positive: No respiratory distress, Decreased breath sounds, Wheezing - occasional, faint. Negative: Crackles, Rhonchi Cardiovascular: Positive: RRR, No Murmur Abdomen Description: Positive: Nontender Musculoskeletal: Positive: ROM Intact Neurological: Positive: Alert Psychological: Positive: Age Appropriate Behavior Skin Exam: Normal Course/Dx - Differential Dx - Multi-Symptom Differential Diagnoses: Other - no concern for PE or pneumonia. pt notes sinuses have improved. given duration and worsening, I am going to tx with zithromax because pt is pcn allergic and . - Diagnoses Provider Diagnosis: Sinusitis, Bronchitis Discharge - Sign-Out/Discharge Documenting (check all that apply): Patient Departure All imaging exams completed and their final reports reviewed: No Studies - Discharge Plan Condition: Stable Disposition: HOME Prescriptions: Albuterol 2.5MG/3ML (0.083%)* [Ventolin 2.5 MG/3 ML NEB.BILLIE*] 2.5 mg INH Q6H PRN #1 neb.billie PRN Reason: Wheezing Albuterol HFA INHALER* [Ventolin HFA Inhaler*] 2 puff INH Q6H #1 mdi Azithromycin TAB* [Zithromax TAB (Z-AWILDA) 250 mg #6 tabs] 2 tab PO .TODAY, THEN 1 DAILY #1 awilda Patient Education Materials: Sinusitis (ED), Acute Bronchitis (ED) Referrals: Linda Larios NP [Primary Care Provider] - 5 Days Additional Instructions: USE THE ALBUTEROL INHALER OR NEBULIZER EVRY 6 HOURS BUT NOT BOTH AT THE SAME TIME. - Billing Disposition and Condition Condition: STABLE Disposition: Home
== END 2018-08-13 13:17 | disposition home or self-care (01) ==
LOC: UCCORT 12:01
DX: Z88.0 Allergy status to penicillin (principal); O26.891 Other specified pregnancy related conditions, first trimester; J32.9 Chronic sinusitis, unspecified; J40 Bronchitis, not specified as acute or chronic; F17.210 Nicotine dependence, cigarettes, uncomplicated; O99.331 Smoking (tobacco) complicating pregnancy, first trimester; Z3A.00 Weeks of gestation of pregnancy not specified
CPT/HCPCS: 99212; G0463

== ENCOUNTER 2018-12-24 11:02 | Emergency (ER) | payer OTHER ==
[2018-12-24 11:31] VITALS: BP 126/60
--- NOTE | 2018-12-24 12:40 | UC ---
Skin Complaint HPI - HPI Summary HPI Summary: foot sore x 4 months located at the plantar surface of left foot, has been painful and not healing , no known injury - History of Current Complaint Chief Complaint: UCLowerExtremity Time Seen by Provider: 12/24/18 11:36 Stated Complaint: LEFT FOOT COMPLAINT Hx Obtained From: Patient Hx Last Menstrual Period: 06/19/18 ?: No Onset/Duration: Gradual Onset, Still Present - 4 months Timing: Constant Onset Severity: Moderate Current Severity: Moderate Pain Intensity: 7 Pain Scale Used: 0-10 Numeric Location: Discrete - plantar right foot Character: Pain, Redness Aggravating Factor(s): Touch, Other - walking Alleviating Factor(s): Nothing Associated Signs & Symptoms: Negative: Nausea, Vomiting, Fever, Chills - Allergy/Home Medications Allergies/Adverse Reactions: Allergies Allergy/AdvReac Type Severity Reaction Status Date / Time Penicillins Allergy Shortness Verified 12/24/18 11:27 of Breath PMH/Surg Hx/FS Hx/Imm Hx Psychological History: Anxiety, Depression - Surgical History Surgical History: Yes Surgery Procedure, Year, and Place: , . TONSILLECTOMY - Family History Known Family History: Positive: Non-Contributory - Social History Alcohol Use: None Substance Use Type: None Smoking Status (MU): Heavy Every Day Tobacco Smoker Type: Cigarettes Amount Used/How Often: 1/2 PPD Review of Systems All Other Systems Reviewed And Are Negative: Yes Constitutional: Positive: Negative Eyes: Positive: Negative ENT: Positive: Negative Is Patient Immunocompromised?: No Physical Exam Triage Information Reviewed: Yes Appearance: Well-Appearing, No Pain Distress, Well-Nourished Vital Signs: Initial Vital Signs Temp 97.8 F 12/24/18 11:27 Pulse 82 12/24/18 11:27 Resp 18 12/24/18 11:27 BP 126/60 12/24/18 11:27 Pulse Ox 100 12/24/18 11:27 Vital Signs Reviewed: Yes ENT Exam: Normal ENT: Positive: Normal ENT inspection, Hearing grossly normal, Pharynx normal Neck: Positive: Supple, Nontender, No Lymphadenopathy Respiratory: Positive: Chest non-tender, Lungs clear, Normal breath sounds Cardiovascular: Positive: RRR, No Murmur, Pulses Normal Skin: Positive: Other - ulceration left plantar foot , + tinea infection of the toes Course/Dx - Diagnoses Provider Diagnosis: Tinea pedis of left foot Discharge ED - Sign-Out/Discharge Documenting (check all that apply): Patient Departure All imaging exams completed and their final reports reviewed: No Studies - Discharge Plan Condition: Stable Disposition: HOME Prescriptions: Ketoconazole 2 % CREAM (NF) [Nizoral 2% CREAM (NF)] 1 applic TOPICAL BID #60 gm Patient Education Materials: Athlete's Foot (ED) Referrals: David Choe DPM [Doctor of Podiatric Medicine] - As Soon As Possible Linda Larios NP [Primary Care Provider] - 2 Weeks - Billing Disposition and Condition Condition: STABLE Disposition: Home
== END 2018-12-24 11:53 | disposition home or self-care (01) ==
LOC: UCCORT 11:02
DX: B35.3 Tinea pedis (principal); F17.210 Nicotine dependence, cigarettes, uncomplicated; Z88.0 Allergy status to penicillin
CPT/HCPCS: 99212; G0463

== ENCOUNTER 2019-03-19 06:04 | Inpatient (IN) | payer OTHER ==
[~2019-03-19 06:04] MED LIST: Buffered Lidocaine 1% SYRIN* 1 ML/SYRINGE INTRADERM ONE; Lactated Ringers 1000 ML Bag* 1,000 ML IV SCH; Sodium Citrate/Citric Acid* 15 ML UDC PO ONE
--- OUTSIDE RECORDS SUMMARY | 2019-03-19 06:08 | XMS REPORT | Continuity of Care Document ---
:1985 External Reference #:[id number] Author Name Sonu Sanches JR, DO (transmitted by agent of provider Becki Fortune ) Address [address], [place] [address] Care Team Providers Name Role Phone Abel Larios FNP Care Team Information Oracle Brm Developer [phone] Problems Description No Information Available Social History Type Date Description Comments Sex Unknown Cigarette Use Current Cigarette Smoker 1 Pack Daily ETOH Use Denies alcohol use Recreational Drug Use Denies Drug Use Seat Belt/Car Seat Always uses seat belt Allergies, Adverse Reactions, Alerts Active Allergies Reaction Severity Comments Date Penicillin 01/05/2019 Medications Active Medications SIG Qnty Indications Ordering Provider Date 1 po qd Unknown Immunizations Description No Information Available Vital Signs Date Vital Result Comment 03/06/2019 2:41pm Height 65.5 inches 5'5.50" 3 Parity 2 01/05/2019 9:10am BP Systolic 122 mmHg BP Diastolic 78 mmHg Height 65.5 inches 5'5.50" Weight 248.00 lb BMI (Body Mass Index) 40.6 kg/m2 Last Menstrual Period 7518977 3 Parity 2 Results Test Acquired Date Facility Test Result H/L Range Note Laboratory test 01/26/2019 [facility] Gardnerella/Y SEE RESULT 1 [place] [address] east: Vaginal BELOW [phone] Dna Urinalysis 01/26/2019 [facility] [place] [address] [phone] Urine Appearance Clear Urine Specific Wells 1.005 Low 1.010-1.030 Urine pH 7.0 Normal 5-9 Urine Urobilinogen Negative Negative Urine Ketones Negative Negative Urine Protein Negative Negative Urine Leukocytes Negative Negative Urine Blood Negative Negative Urine Nitrite Negative Negative Urine Bilirubin Negative Negative Urine Glucose Negative Negative 1 SEE RESULT BELOW Name: ANNE TSAI : [address]: Lisset Sorenson MD Acct: [id number] Unit: [id number] AGE: 33 Location: [facility] Re01/26/19 SEX: F Status: DEP REF SPEC: [id number] YOSI: 01/26/[address]: Lisset Sorenson MD REQ: [id number] RECD: 01/26/19 STATUS:JORGE L CONNOR DR: Abel Larios REINFORCING IRON WORKER HELPER _ SOURCE: VAGINAL SPDESC: ORDERED: Gisele,Yeast DNA QUERIES: Would you like to order Trichomonas Vaginalis testing? No Procedure Result Reported Site Gardnerella/Yeast: Vaginal DNA Final 01/27/19- 1433 ML Organism 1 Negative Gardnerella Organism 2 Negative Chely The presence of G. vaginalis, although suggestive, is not diagnostic for bacterial vaginosis. Results should be interpreted in conjuction with other clinical and laboratory data available. Women with vaginal discharge should be evaluated for risk factors of cervicitis and pelvic inflammatory disease, toxic shock syndrome (S.aureus), and if present, evaluated for organisms not included in this assay such as N. gonorrhoeae, C. trachomatis, Mobiluncus, Mycoplasma and/or Prevotella. Mixed infections may occur. The performance of this test on patient specimens collected during or immediately after antimicrobial therapy is unknown. The presence or absence of Chely species, or G. vaginalis cannot be used as a test for therapeutic success or failure. * ML - Main Lab . END OF REPORT DEPARTMENT OF PATHOLOGY, [address] [place] [address] Shay Cuevas M.D. Director [facility] # [id number] Procedures Date Code Description Status 01/21/2019 71323 Biophysical Profile Without Non Stress Test Completed 01/21/2019 07447 Echography Uterus Follow-Up Or Repeat Completed Medical Devices Description No Information Available Encounters Description No Information Available Assessments Date Code Description Provider 02/17/2019 O34.211 Maternal care for low transverse scar from Lisset Sorenson MD previous delivery 02/17/2019 O09.73 Supervision of high risk due to Lisset Sorenson MD social problems, third trimester 02/04/2019 O09.73 Supervision of high risk due to Sonu Sanches JR, DO social problems, third trimester 02/04/2019 O34.211 Maternal care for low transverse scar from Sonu Sanches JR, DO previous delivery 01/21/2019 O09.73 Supervision of high risk due to Agusto Balderas M.D. social john, third trimester 01/21/2019 O09.73 Supervision of high risk due to Agusto Balderas M.D. social problems, third trimester 01/21/2019 O09.73 Supervision of high risk due to Ultrasounds social problems, third trimester 01/05/2019 O09.73 Supervision of high risk due to Krystal Doyle CNM social problems, third trimester Plan of Treatment Future Appointment(s):03/19/2019 7:45 am - Michelle Leone MD at [facility] [place] O R004/20 1:30 pm - Sonu Sanches JR, DO at [facility]03/26/2019 11:00 am - Annmarie Sanchez CNM at [facility]03/19/2019 7:45 am - Sonu Sanches JR, DO at [facility] [facility] O R Functional Status Description No Information Available Mental Status Description No Information Available Referrals Description No Information Available
--- OUTSIDE RECORDS SUMMARY | 2019-03-19 06:08 | XMS REPORT | Continuity of Care Document ---
:1985 External Reference #:[id number] Author Name Sonu Justicecharley BALBUENA, DO Address [address], [place] [address] Care Team Providers Name Role Phone Abel Larios FNP Care Team Information Radioisotope Technologist [phone] Problems Description No Information Available Social History [...] Signs Date Vital Result Comment 03/06/2019 2:41pm BP Systolic 126 mmHg BP Diastolic 60 mmHg Height 65.5 inches 5'5.50" 3 Parity 2 01/05/2019 9:10am BP Systolic 122 mmHg BP Diastolic 78 mmHg Height 65.5 inches 5'5.50" Weight 248.00 lb BMI (Body Mass Index) 40.6 kg/m2 Last Menstrual Period 6133097 3 Parity 2 Results Test Acquired Date Facility Test Result H/L Range Note CBC Auto 03/17/2019 [facility] White Blood 10.2 10^3/uL Normal 3.5-10.8 [place] [address] Count [phone] Red Blood Count 4.23 10^6/uL Normal 3.70-4.87 Hemoglobin 12.7 g/dL Normal 12.0-16.0 Hematocrit 37 % Normal 35-47 Mean Corpuscular Volume 88 fL Normal 80-97 Mean Corpuscular Hemoglobin 30 pg Normal 27-31 Mean Corpuscular HGB Conc 34 g/dL Normal 31-36 Red Cell Distribution Width 14 % Normal 10-15 Platelet Count 368 10^3/uL Normal 150-450 Mean Platelet Volume 7.7 fL Normal 7.4-10.4 Abs Neutrophils 7.0 10^3/uL Normal 1.5-7.7 Abs Lymphocytes 2.4 10^3/uL Normal 1.0-4.8 Abs Monocytes 0.5 10^3/uL Normal 0-0.8 Abs Eosinophils 0.2 10^3/uL Normal 0-0.6 Abs Basophils 0.1 10^3/uL Normal 0-0.2 Abs Nucleated RBC 0.0 10^3/uL Granulocyte % 68.5 % Lymphocyte % 23.9 % Monocyte % 5.0 % Eosinophil % 1.9 % Basophil % 0.7 % Nucleated Red Blood Cells % 0.0 Type And Screen 03/17/2019 [facility] [place] [address] Type [phone] Antibody Screen NEGATIVE Laboratory test 03/06/2019 [facility] Group B Strep SEE RESULT 1, 2 [place] [address] Culture Screen BELOW [phone] Laboratory test 01/26/2019 [facility] Gardnerella/Ye SEE RESULT 3 [place] [address] ast: Vaginal BELOW [phone] Dna Urinalysis 01/26/2019 [facility] Urine [place] [address] [phone] Urine Appearance Clear Urine Specific Linn 1.005 Low 1.010-1.030 Urine pH 7.0 Normal 5-9 Urine Urobilinogen Negative Negative Urine Ketones Negative Negative Urine Protein Negative Negative Urine Leukocytes Negative Negative Urine Blood Negative Negative Urine Nitrite Negative Negative Urine Bilirubin Negative Negative Urine Glucose Negative Negative 1 [id number] 2 SEE RESULT BELOW Name: ANNE TSAI : [address]: Sonu Sanches DO Acct: [id number] Unit: [id number] AGE: 34 Location: [facility] Re03/06/19 SEX: F Status: REG REF SPEC: [id number] YOSI: 03/06/19-[address]: Sonu Sanches DO REQ: [id number] RECD: 03/09/19 STATUS: COMP _ SOURCE: DARLING/VAG/RE SPDESC: ORDERED: Grp B Strp Scrn COMMENTS: [id number] QUERIES: Is Patient Penicillin Allergic? Y Is patient penicillin allergic and/or sensitivities needed? Y Provider Requisition # [id number]_ Procedure Result Reported Site Group B Strep Culture Screen Final 03/11/19- 1402 ML Group B Strep Screen Negative * - Main Lab . END OF REPORT DEPARTMENT OF PATHOLOGY, [address] [place] [address] Shay Cuevas M.D. Director [facility] # [id number] 3 SEE RESULT BELOW Name: ANNE TSAI : [address]: Lisset Sorenson MD Acct: [id number] Unit: [id number] AGE: 33 Location: [facility] Re01/26/19 SEX: F Status: DEP REF SPEC: [id number] YOSI: 01/26/[address] [facility] [address]: Lisset Sorenson MD REQ: [id number] RECD: 01/26/19 STATUS:JORGE L VELASCO DR: Abel Larios CYLINDER PRESS OPERATOR HELPER _ SOURCE: VAGINAL SPDESC: ORDERED: Gisele,Yeast [...] . END OF REPORT DEPARTMENT OF PATHOLOGY, [address] [place] [address] Shay Cuevas M.D. Director [facility] # [id number] Procedures Date Code Description Status 03/13/2019 75427 Non-Stress Test Completed 01/21/2019 89279 Biophysical Profile Without Non Stress Test Completed 01/21/2019 42238 Echography Uterus Follow-Up Or Repeat Completed Medical Devices Description No Information Available Encounters Type Date Location Provider Dx Diagnosis Office Visit 03/06/2019 [facility] Sonu Sanches JR, O34.211 Matern care for low 2:30p DO transverse scar from prev del Assessments Date Code Description Provider 03/13/2019 O09.73 Supervision of high risk due to Agusto Balderas M.D. social problems, third trimester 03/06/2019 O34.211 Maternal care for low transverse scar from Sonu Sanches JR, DO previous delivery 02/17/2019 O34.211 Maternal care for low transverse [...] 7:45 am - Michelle Leone [place] [facility] [place] R004/20 1:30 pm - Sonu Sanches JR, DO at [facility]03/26/2019 11:00 am - Annmarie Sanchez CNM at [facility]03/19/2019 7:45 am - Sonu Sanches JR, DO at [facility] [place] R Functional Status Description No Information Available Mental Status Description No Information Available Referrals Description No Information Available
[2019-03-19] MEDS ORDERED: ceFOXitin 2 GM IVPREMIX* 2 GM/50 ML BAG IVPB ONE (07:00)
[2019-03-19 07:28] LABS: Urine Benzodiazepine Screen None Detected (None Detect); Urine Buprenorphine Screen None Detected (None Detect); Urine Hydrocodone Screen None Detected (None Detect); Urine Opiates Screen None Detected (None Detect)
[2019-03-19] MEDS ORDERED: Morphine PF AMP (0.5MG/ML)* 5 MG/10 ML AMP ONE (07:34)
[2019-03-19] MEDS ORDERED: Phenylephrine 40 MCG/ML SYRINGE ONE (07:35)
[2019-03-19] MEDS ORDERED: OXYTOCIN* 10 UNITS/ML 1 ML VIAL ONE ×2 (08:06→08:36)
[2019-03-19] MEDS ORDERED: Ondansetron INJ* 2 MG/ML VIAL ONE (08:06)
[2019-03-19] MEDS ORDERED: Ketorolac INJ* 30 MG/ML 1 ML VIAL ONE (08:24)
[2019-03-19] MEDS ORDERED: fentaNYL* 50 MCG/ML 2 ML VIAL (100 MCG VIAL) ONE (08:43)
[2019-03-19] MEDS ORDERED: Naloxone* 0.4 MG/ML 1 ML VIAL IV PRN ×2 (08:59→09:00)
[2019-03-19] MEDS ORDERED: Ondansetron INJ* 2 MG/ML VIAL IV PRN (09:00)
[2019-03-19] MEDS ORDERED: oxyCODONE/Acetamin 5/325 MG* TAB PO PRN ×2 (09:00)
[2019-03-19] MEDS ORDERED: diPHENhydraMINE IV* 50 MG/ML 1 ml VIAL (BENADRYL) IV PRN (10:49)
[2019-03-19] MEDS: Nicotine PATCH 21 MG/24 HR* PATCH TRANSDERM SCH (10:56)
[2019-03-19] MEDS ORDERED: Dibucaine 1% 28.35 GM TUBE PR PRN (11:42)
[2019-03-19] MEDS ORDERED: Witch Hazel PAD* JAR TOPICAL PRN (11:42)
[2019-03-19] MEDS ORDERED: Zolpidem TAB* 5 MG PO PRN (11:42)
[2019-03-19] MEDS ORDERED: Glycerin ADULT SUPP PR PRN (11:42)
[2019-03-19] MEDS ORDERED: Lactated Ringers 1000 ML Bag* 1,000 ML IV SCH (12:00)
[2019-03-19] MEDS: Simethicone TAB* 80 MG TAB.CHEW PO SCH ×3 (12:50→20:15)
--- NOTE | 2019-03-19 13:16 | OP ---
OPERATIVE REPORT: DATE OF OPERATION: 03/19/19 DATE OF : 83 SURGEON: Sonu Sanches, TRAFFIC ENGINEERING TECHNICIAN: Michelle Leone MD ANESTHESIA: Spinal. PRE-OP DIAGNOSES: 1. Brothers intrauterine at 39 weeks. 2. History of x2. POST-OP DIAGNOSES: 1. Brothers intrauterine at 39 weeks. 2. History of x2. 3. Delivered. OPERATIVE PROCEDURE: Repeat low transverse via Pfannenstiel incision and bilateral tubal ligation. ESTIMATED BLOOD LOSS: 600 mL. IV FLUIDS: 1650 mL. URINE OUTPUT: 100 mL. SPECIMEN: Placenta, which was discarded. COMPLICATIONS: There were no complications. FINDINGS: A female in vertex position, Apgars 9 and 9, weight 8 pounds 5 ounces. Normal uterus, fallopian tubes, and ovaries. INDICATIONS: The patient had undergone 2 prior cesareans and wished to have elective repeat at term. The patient understood that the risks of section include, but are not limited to visceral or vascular injury, infection, blood loss, need for transfusion, prolonged hospitalization, and reoperation. The patient stated understanding and wished to proceed with a repeat at term and bilateral tubal ligation. Paperwork for her tubal ligation had been previously completed in the office. DESCRIPTION OF PROCEDURE: The patient was taken to the operating room, where spinal anesthesia was administered and found to be adequate. 2 g of cefoxitin was given for infection prophylaxis. She was prepared and draped in the dorsal supine fashion with a leftward tilt. A Pfannenstiel skin incision was made with a scalpel. This incision was carried down to the fascia sharply. The fascia was incised and extended laterally. The inferior aspect of the fascia was grasped with Marilee clamps. The underlying rectus muscle and pyramidalis were dissected off sharply with Beckham scissors. In a similar fashion, the superior aspect of the fascia was elevated with Marilee's and the rectus muscle was dissected off. Hemostasis was noted to be good. The rectus muscle was in the midline. Preperitoneal fatty tissue was bluntly dissected to expose the peritoneum and peritoneum was entered bluntly. Peritoneal incision was extended superiorly and inferiorly to the bladder reflection with good visualization of the bladder. Bladder blade was inserted and vesicouterine peritoneum identified. Intraabdominal survey revealed scant clear peritoneal fluid and thinned out lower uterine segment. The vesicouterine peritoneum was opened with scissors and a bladder flap was developed. The bladder blade was repositioned to keep the bladder out of the operative field. The lower uterine segment was incised with a scalpel. Amniotic sac ruptured spontaneously and clear fluid was noted. The uterine incision was extended bluntly in a cephalocaudad orientation. The fetus was in cephalic presentation. The head was elevated out of the pelvis with special attention paid to avoid using the uterine incision as a fulcrum. Gentle fundal pressure was applied once the head was brought into the incision. The was delivered with no difficulty. The mouth and nose were suctioned with a bulb. The cord was clamped and cut. The was handed off to the brick burner. IV oxytocin was initiated to facilitate uterine contractions. Placenta was delivered intact with manual massage of the uterine fundus. The uterus was then exteriorized. The inside of the uterus was gently wiped with a lap sponge to assure complete removal of all placental membranes. The uterine incision was closed with a 0 Vicryl suture in a running locked fashion. An imbricating suture was also placed with an additional 0 Vicryl suture. The ovaries and fallopian tubes were inspected and found to be normal. The right fallopian tube was elevated away from the ovary using a Gemini clamp and a Tang clamp and a 2 -0 Vicryl suture was used to suture ligate the fimbriated end and majority of fallopian tube. A Nish stitch was placed as well. Then, fallopian tube and fimbriated end were resected using the Metzenbaum scissors. This was repeated on the left fallopian tube. Both sites were noted to be hemodynamically stable. Abdominal irrigation was then performed. The uterus and ovaries were then returned to the abdominal cavity. Blood clots and fluid were wiped out of the abdomen and pelvis with moist laparotomy sponges. The uterine incision was reinspected and good hemostasis was noted. The peritoneum was closed with 3-0 Vicryl suture in a continuous running fashion. Fascial layer was closed with 0 Vicryl suture. The incision was irrigated and then the subcutaneous fascia was closed with 3-0 Vicryl suture interrupted. The skin was closed with 4-0 Monocryl suture in a subcuticular fashion. The patient tolerated the procedure well. All the counts were correct x2. The patient was taken to the recovery room in stable condition. I was present for the entirety of the procedure. Jeferson Sanches DO OBBRIANN [id number]/CPS #: [id number] [facility]ENTERMarilee
[2019-03-19] MEDS: Docusate CAP* 100 MG PO SCH ×2 (14:04→20:14)
[2019-03-19] MEDS: Acetaminophen TAB* 325 MG PO PRN (20:14)
[2019-03-19] MEDS: Ketorolac INJ* 30 MG/ML 1 ML VIAL IV PRN (20:15)
[2019-03-20] MEDS: Ketorolac INJ* 30 MG/ML 1 ML VIAL IV PRN ×2 (02:14→08:57)
[2019-03-20] MEDS: Acetaminophen TAB* 325 MG PO PRN (05:28)
[2019-03-20] MEDS: Nicotine Patch Removal NOTE PATCH OFF SCH (05:35)
[2019-03-20 07:08] LABS: ABS Eosinophils 0.3 10^3/ul (0-0.6); ABS Lymphocytes 2.7 10^3/ul (1.0-4.8); ABS Monocytes 0.7 10^3/ul (0-0.8); ABS Neutrophils 5.4 10^3/ul (1.5-7.7); Eosinophil % 2.8 %; Hematocrit 34 % (35-47); Hemoglobin 11.5 g/dL (12.0-16.0); Mean Corpuscular HGB Conc 34 g/dL (31-36); Mean Corpuscular Hemoglobin 30 pg (27-31); Mean Corpuscular Volume 88 fL (80-97); Mean Platelet Volume 7.6 fL (7.4-10.4); Nucleated Red Blood Cells % 0.1; Platelet Count 306 10^3/uL (150-450); Red Blood Count 3.85 10^6 /uL (3.70-4.87); Red Cell Distribution Width 14 % (10-15); White Blood Count 9.1 10^3/uL (3.5-10.8)
[2019-03-20] MEDS: Nicotine PATCH 21 MG/24 HR* PATCH TRANSDERM SCH (08:58)
[2019-03-20] MEDS: Docusate CAP* 100 MG PO SCH ×3 (08:58→21:59)
[2019-03-20] MEDS: Simethicone TAB* 80 MG TAB.CHEW PO SCH ×4 (08:58→21:59)
[2019-03-20] MEDS ORDERED: Ferrous Gluconate TAB* 324 MG TAB PO SCH (09:00)
[2019-03-20] MEDS: oxyCODONE/Acetamin 5/325 MG* TAB PO PRN ×4 (09:09→21:59)
[2019-03-20] MEDS: Ibuprofen TAB* 600 MG PO PRN ×2 (15:49→21:59)
[2019-03-21] MEDS: Ibuprofen TAB* 600 MG PO PRN ×2 (04:40→10:53)
[2019-03-21] MEDS: oxyCODONE/Acetamin 5/325 MG* TAB PO PRN ×2 (04:42→10:53)
[2019-03-21 08:01] VITALS: BP 144/65
[2019-03-21] MEDS: Nicotine PATCH 21 MG/24 HR* PATCH TRANSDERM SCH (08:05)
[2019-03-21] MEDS: Nicotine Patch Removal NOTE PATCH OFF SCH (08:08)
[2019-03-21] MEDS: Docusate CAP* 100 MG PO SCH (08:08)
[2019-03-21] MEDS: Simethicone TAB* 80 MG TAB.CHEW PO SCH (08:08)
[2019-03-21] MEDS ORDERED: Nicotine PATCH 14 MG/24 HR* PATCH TRANSDERM SCH (11:00)
[2019-03-21] MEDS ORDERED: Nicotine Patch Removal NOTE PATCH OFF SCH (21:00)
== END 2019-03-21 12:30 | disposition home or self-care (01) | DRG 540 ==
LOC: MCHOB 06:04
PROVIDERS: ADMIT Obstetrics & Gynecology; ATTEND Obstetrics & Gynecology
PROC: 4A1HXCZ Monitoring of Products of Conception, Cardiac Rate, External Approach (ICD-10-PCS; 2019-03-19)
PROC: 0UB70ZZ Excision of Bilateral Fallopian Tubes, Open Approach (ICD-10-PCS; 2019-03-19)
PROC: 10D00Z1 Extraction of Products of Conception, Low, Open Approach (ICD-10-PCS; principal; 2019-03-19 07:45)
DX: O34.211 Maternal care for low transverse scar from previous cesarean delivery (principal); O99.334 Smoking (tobacco) complicating childbirth; F17.210 Nicotine dependence, cigarettes, uncomplicated; O69.2XX0 Labor and delivery complicated by other cord entanglement, with compression, not applicable or unspecified; Z3A.39 39 weeks gestation of pregnancy; Z37.0 Single live birth; Z88.0 Allergy status to penicillin; Z30.2 Encounter for sterilization; Z91.410 Personal history of adult physical and sexual abuse
CPT/HCPCS: 36415; 80307; 85025; 88302; A9270-GY; J0694; J1200; J1885; J2405; J2590; J3010